=== PATIENT | male | born 2000 | race Caucasian/White ===

== ENCOUNTER 2022-10-03 21:37 | Emergency (ER) | payer MEDICAID, SELFPAY ==
[2022-10-03 21:42] VITALS: BP 141/91; PULSE 68; RESP 20; TEMP 37; O2SAT 100; BMI 21.5
--- NOTE | 2022-10-03 22:23 | ED_ITS ---
HPI - General Adult General: Chief complaint: General Medical Stated complaint: wants Detox Time Seen by Provider: 10/03/22 22:03 Source: patient Mode of arrival: ambulatory Limitations: no limitations History of Present Illness: 21-year-old male who states that he did relapse on opioid abuse he states he last used Suboxone 6 days ago is here wondering about detox he denies any suicidality denies any homicidality states is not having any withdrawal symptoms denies any vomiting he has no medical complaints at this time. Associated symptoms: Deny chest pain, dyspnea, headache(s), nausea, rash or vomiting Review of Systems Const: Denies: fever(s), chills, body aches or change in appetite Eyes: Denies: blurry vision or eye discomfort ENMT: Denies: throat pain or dental pain Card: Denies: chest pain Resp: Denies: dyspnea GI: Denies: abdominal pain, nausea, vomiting or diarrhea : Denies: dysuria Musc: Denies: neck pain or back pain Skin/Breast: Denies: rash Neuro: Denies: headache(s) Psych: Denies: depression Arcadio/Lymph: Denies: easy bruising All/Imm: Denies: urticaria PFSH ED 2 PFSH: Medical History (Updated 10/03/22 @ 22:38 by John Gilman MD) No pertinent past medical history Social History (Updated 10/03/22 @ 22:38 by John Gilman MD) Substance/Drug Use: current Physical Exam Const: COMMON NORMALS: no acute distress, patient oriented x3 and healthy appearing HENMT: COMMON NORMALS: normocephalic and atraumatic HEAD & SCALP: normocephalic and atraumatic Eye: COMMON NORMALS: Equal, round and reactive pupils present and EOMs intact bilaterally PUPIL: Yes Equal, round and reactive pupils present Neck/C-Spine: COMMON NORMALS: full ROM and supple Chest: COMMONS NORMALS: normal inspection of the chest and normal palpation of entire chest wall Resp: COMMON NORMALS: normal respiratory effort, No retractions, No use of accessory muscles and clear to auscultation bilaterally AUSCULTATION: clear to auscultation bilaterally Cardio: COMMON NORMALS: regular rate, regular rhythm and No murmurs present (Cardio) RATE: regular rate RHYTHM: regular rhythm GI: COMMON NORMALS: Normal to inspection, nondistended, normoactive bowel sounds present, Soft to palpation, non-tender and no masses PALPATION: Yes Soft to palpation Extremity: COMMON NORMALS: normal to inspection and full ROM Neuro: COMMON NORMALS: patient oriented x3, moves all extremities and no focal motor deficits Psych: COMMON NORMALS: mental status grossly normal, Normal thought process present and cooperative THOUGHT PROCESS: Normal thought process present Skin: COMMON NORMALS: no rashes or lesions noted and no wounds GENERAL SKIN EXAM: no rashes or lesions noted Course Vital Signs: Vital signs: Vital Signs Temperature 98.6 F 10/03/22 21:42 Pulse Rate 68 10/03/22 21:42 Respiratory Rate 20 H 10/03/22 21:42 Blood Pressure 141/91 10/03/22 21:42 Pulse Oximetry 100 10/03/22 21:42 Oxygen Delivery Me thod 10/03/22 21:42 MDM - General Adult Medical Decision Making Patient presents here requesting possible detox he states he last used Suboxone 6 days ago he is not having any withdrawal symptoms here we will give him information for [facility] he is not suicidal or homicidal he stable for discharge. Discharge Plan Discharge Patient Disposition: Home Clinical Impression: Desire for detoxification Condition: Stable Discharge Orders: Discharge ED (Routine); Ordered 10/03/22 Ordered By: John Gilman Discharge Diet: Advance as tolerated Discharge Activity: Resume usual activity Patient Instructions: Narcotic Use Disorder (ED) Coding Level of Care Code ED Pressure Test Operator for Charlotte Dailey
[2022-10-03 22:34] VITALS: BP 141/91; PULSE 70; RESP 18; TEMP 37; O2SAT 100
--- NOTE | 2022-10-06 08:46 | PC.SOCIAL ---
[facility] Consult received for referral to [facility] for detox. CM reached out to number listed for contact. CM is told that patient is in an inpatient rehab in [place] already.
== END 2022-10-03 22:40 | disposition home or self-care (01) ==
PROVIDERS: Emergency Provider Emergency Medicine
DX: F11.10 Opioid abuse, uncomplicated (principal)
CPT/HCPCS: 99283